=== PATIENT | female | born 1960 | race Caucasian/White ===

== ENCOUNTER 2024-12-12 16:05 | Emergency (ER) | payer SELFPAY ==
[~2024-12-12] VITALS: Ht 160 cm; Wt 86.1 kg
[2024-12-12] MEDS ORDERED: DIATRIZOATE MEGLUMINE & SODIUM 30 ML/BTL PO ONE (16:50)
[2024-12-12 18:35] VITALS: BP 132/68
== END 2024-12-12 18:36 | disposition home or self-care (01) | DRG 395 ==
LOC: ED 16:05
PROC: 0D20XUZ Change Feeding Device in Upper Intestinal Tract, External Approach (ICD-10-PCS; principal; 2024-12-12)
DX: Z46.59 Encounter for fitting and adjustment of other gastrointestinal appliance and device (principal); I10 Essential (primary) hypertension

== ENCOUNTER 2024-12-13 07:19 | Emergency (ER) | payer SELFPAY | END 2024-12-13 07:24 | disposition left against medical advice (07) | DRG 951 | LOC: ED 07:19 → LWOBS 07:23 | DX: Z53.21 Procedure and treatment not carried out due to patient leaving prior to being seen by health care provider (principal) ==